=== PATIENT | female | born 1995 | race Caucasian/White ===

== ENCOUNTER 2017-04-06 17:41 | Emergency (ER) | payer MEDICAID ==
[~2017-04-06] VITALS: Ht 160 cm; Wt 66.8 kg
[~2017-04-06 17:41] MED LIST: DOCU-30 PO; FERR325T10 PO; IBUP800T PO; NITR100C56 PO; OXYC-302 PO
[2017-04-06] MEDS ORDERED: ONDANSETRON 2MG/ML, 2ML ONE (18:13)
[2017-04-06] MEDS ORDERED: SODIUM CHLORIDE 0.9% 1,000ML IVBOLUS ONE (18:30)
[2017-04-06] MEDS ORDERED: ONDANSETRON 2MG/ML, 2ML IVPush ONE (18:30)
[2017-04-06 18:34] LABS: BLOOD UREA NITROGEN 13 mg/dL (7-18)
[2017-04-06 19:22] VITALS: BP 101/64
== END 2017-04-06 21:45 | disposition home or self-care (01) ==
LOC: ED 20:42
DX: N83.202 Unspecified ovarian cyst, left side (principal); N39.0 Urinary tract infection, site not specified; R10.32 Left lower quadrant pain
CPT/HCPCS: 36415; 76830; 80048; 81001; 82040; 84703; 85025; 87086; 96361; 96374; 99285; J2405; J7030

== ENCOUNTER 2019-01-20 16:35 | Emergency (ER) | payer SELFPAY ==
[~2019-01-20] VITALS: Ht 160 cm; Wt 63.2 kg
[~2019-01-20 16:35] MED LIST changes: +DOCU-131 PO; -DOCU-30 PO; -FERR325T10 PO; +FERR325T17 PO; +IBUP-1223 PO; -IBUP800T PO
--- NOTE | 2019-01-20 17:12 | NUR ---
THIS IS A 23 YEAR OLD FEMALE WHO C/P OF ABD CAMPING FOR FEW DAYS. PT STATES SHE IS 17 WEEKS PREGRANT, NAUSEA AND HEADACHE WITH SPOTTING X 2 DAYS. PT ON LOVENOX
[2019-01-20 17:38] LABS: BASOPHILS # (AUTO) 0.03 x10^3/uL (0-0.1); BASOPHILS % (AUTO) 1 % (0-1); EOSINOPHILS # (AUTO) 0.01 x10^3/uL (0-0.4); EOSINOPHILS % (AUTO) 0 % (1-7); LYMPHOCYTES # (AUTO) 1.42 x10^3/uL (1-3.4); LYMPHOCYTES % (AUTO) 19 % (22-44); MD NO; MEAN CORPUSCULAR HEMOGLOBIN 26.6 pg (27.0-34.8); MEAN CORPUSCULAR HGB CONC 33.3 g/dL (32.4-35.8); MEAN CORPUSCULAR VOLUME 79.8 fL (80-100); MEAN PLATELET VOLUME 8.8 fL (7.4-10.4); MONOCYTES # (AUTO) 0.42 x10^3/uL (0.2-0.8); MONOCYTES % (AUTO) 6 % (2-9); NEUTROPHILS # (AUTO) 5.75 x10^3/uL (1.8-6.8); NEUTROPHILS % (AUTO) 75 % (42-75); PLATELET COUNT 210 x10^3/uL (130-400); RED BLOOD COUNT 4.15 x10^6/uL (3.82-5.3); RED CELL DISTRIBUTION WIDTH 19.4 % (9.6-15.2)
[2019-01-20 17:50] LABS: ALBUMIN 3.6 g/dL (3.4-5.0); ANION GAP 5 mmol/L (5-15); CALCIUM 8.9 mg/dL (8.5-10.1); CHLORIDE 109 mmol/L (98-107); CREATININE 0.63 mg/dL (0.55-1.02)
--- NOTE | 2019-01-20 18:38 | NUR ---
EXPLAINED TO PATIENT NEED FOR URINE, PT UP TO BATHROOM
--- NOTE | 2019-01-20 18:51 | NUR ---
REPORT TO BAUDILIO CHEN, PLAN OF CARE DISCUSSED
--- NOTE | 2019-01-20 19:06 | NUR ---
RECEIVED REPORT FROM APRIL CASE TO ASSUME PT. CARE. PT. PLACED ON CONTINUOUS PULSE OX AND B/P MONITORS. URINE SAMPLE IN LAB; AWAITING RESULTS. NADN. CALL LIGHT IN REACH.
[2019-01-20 19:11] LABS: CULTURE INDICATED? YES; MICROSCOPIC INDICATED
--- NOTE | 2019-01-20 20:21 | NUR ---
PT. RESTING ON GURNEY WITH NADN. URINE CULTURE PENDING STILL; THEN RECHECK. PT. DENIES NEEDS AT THIS TIME. CALL LIGHT IN REACH.
--- NOTE | 2019-01-20 20:48 | NUR ---
PT. CHART UP FOR RECHECK BY ALLAN.
[2019-01-20 20:58] VITALS: BP 100/52
== END 2019-01-20 21:03 | disposition home or self-care (01) ==
LOC: ED 21:00
DX: O26.892 Other specified pregnancy related conditions, second trimester (principal); R10.30 Lower abdominal pain, unspecified; Z3A.16 16 weeks gestation of pregnancy
CPT/HCPCS: 36415; 76815; 80048; 81001; 82040; 84702; 85025; 87086; 99284

== ENCOUNTER 2019-02-20 10:36 | Outpatient (CLI) | payer BC ==
[~2019-02-20] VITALS: Ht 160 cm; Wt 65.0 kg
[2019-02-20 11:22] VITALS: BP 107/66
[2019-02-20 11:30] LABS: MICROSCOPIC AUTO
[2019-02-20 11:39] LABS: AMPHETAMINE SCREEN, URINE Negative (Negative); BARBITURATE SCREEN, URINE Negative (Negative); BENZODIAZEPINE SCREEN, URINE Negative (Negative); CANNABINOID SCREEN, URINE Negative (Negative); COCAINE SCREEN, URINE Negative (Negative); METHADONE SCREEN, URINE Negative (Negative); OPIATE SCREEN, URINE Negative (Negative)
[2019-02-20 11:49] LABS: BASOPHILS # (AUTO) 0.02 x10^3/uL (0-0.1); BASOPHILS % (AUTO) 0 % (0-1); EOSINOPHILS # (AUTO) 0.04 x10^3/uL (0-0.4); EOSINOPHILS % (AUTO) 1 % (1-7); LYMPHOCYTES # (AUTO) 1.48 x10^3/uL (1-3.4); LYMPHOCYTES % (AUTO) 26 % (22-44); MD NO; MEAN CORPUSCULAR HEMOGLOBIN 26.9 pg (27.0-34.8); MEAN CORPUSCULAR HGB CONC 33.5 g/dL (32.4-35.8); MEAN CORPUSCULAR VOLUME 80.4 fL (80-100); MEAN PLATELET VOLUME 8.4 fL (7.4-10.4); MONOCYTES # (AUTO) 0.36 x10^3/uL (0.2-0.8); MONOCYTES % (AUTO) 6 % (2-9); NEUTROPHILS # (AUTO) 3.89 x10^3/uL (1.8-6.8); NEUTROPHILS % (AUTO) 67 % (42-75); PLATELET COUNT 224 x10^3/uL (130-400); RED BLOOD COUNT 3.56 x10^6/uL (3.82-5.3); RED CELL DISTRIBUTION WIDTH 16.4 % (9.6-15.2)
[2019-02-20 12:01] LABS: ALANINE AMINOTRANSFERASE 15 U/L (12-78); ALBUMIN 3.2 g/dL (3.4-5.0); ANION GAP 7 mmol/L (5-15); CALCIUM 8.6 mg/dL (8.5-10.1); CHLORIDE 109 mmol/L (98-107)
[2019-02-20 12:13] LABS: ALKALINE PHOSPHATASE 47 U/L (45-117); BILIRUBIN,TOTAL 0.2 mg/dL (0.2-1.0); CREATININE 0.44 mg/dL (0.55-1.02); FREE T4 (FREE THYROXINE) 1.44 ng/dL (0.76-1.46); THYROID STIMULATING HORMONE 0.648 mIU/L (0.358-3.740)
[2019-02-20] MEDS ORDERED: PREN1TAB10 PO (12:37)
[2019-02-20] MEDS ORDERED: ENOX60SY5 SQ (12:38)
[2019-02-20] MEDS ORDERED: FERR325T5 PO (12:39)
== END 2019-02-20 13:58 | disposition home or self-care (01) ==
LOC: LDOP 10:36
PROVIDERS: ATTEND Obstetrics & Gynecology
DX: O26.892 Other specified pregnancy related conditions, second trimester (principal); Z88.0 Allergy status to penicillin; Z88.8 Allergy status to other drugs, medicaments and biological substances; Z3A.23 23 weeks gestation of pregnancy
CPT/HCPCS: 36415; 59025; 80053; 80307; 81001; 84439; 84443; 85025; 87086; G0463

== ENCOUNTER 2019-04-05 20:15 | Outpatient (CLI) | payer BC ==
[~2019-04-05] VITALS: Ht 160 cm; Wt 68.1 kg
[~2019-04-05 20:15] MED LIST changes: +ENOX60SY5 SQ; +FERR325T5 PO; +PREN1TAB10 PO
[2019-04-05 21:06] LABS: MICROSCOPIC INDICATED
== END 2019-04-05 22:40 | disposition home or self-care (01) ==
LOC: LDOP 20:15
PROVIDERS: ATTEND Obstetrics & Gynecology
DX: O26.852 Spotting complicating pregnancy, second trimester (principal); Z3A.27 27 weeks gestation of pregnancy
CPT/HCPCS: 59025; 76815; 81001; 87086; 99211; G0463